=== PATIENT | female | born 1975 | race Caucasian/White ===

== ENCOUNTER 2016-11-10 05:03 | Day surgery (SDC) | payer BC ==
[2016-11-07 20:56] LABS: BASOPHILS 0.5 %; BASOPHILS ABSOLUTE 0.02 10/3/uL (0.0-0.16); EOSINOPHILS 0.5 %; EOSINOPHILS ABSOLUTE 0.02 10/3/uL (0.0-0.53); HEMATOCRIT 32.5 % (36.0-48.0); LYMPHOCYTES 34.3 %; LYMPHOCYTES ABSOLUTE 1.47 10/3/uL (0.67-4.30); MEAN CORPUS HGB CONC 30.8 g/dL (32.0-36.0); MEAN CORPUSCULAR HEMOGLOB 23.1 pg (26.0-34.0); MEAN CORPUSCULAR VOLUME 75.2 fL (80-100); MEAN PLATELET VOLUME 8.9 fL (9.2-13.0); MONOCYTES 7.5 %; MONOCYTES ABSOLUTE 0.32 10/3/uL (0.21-1.20); NEUTROPHILS 57.2 %; NEUTROPHILS ABSOLUTE 2.46 10/3/uL (2.02-8.40); PLATELET COUNT 240 10/3/uL (150-400); RBC DISTRIBUTION WIDTH 19.3 % (12.0-16.0); RED CELL COUNT 4.32 10/6/uL (4.0-5.6); WHITE BLOOD CELLS 4.3 10/3/uL (4.5-10.5)
[2016-11-07 20:58] LABS: MANUAL DIFF NO %
[2016-11-07 21:15] LABS: BUN (BLOOD UREA NITROGEN) 10 MG/DL (6-23); CALCIUM, SERUM 8.5 MG/DL (8.5-10.4); CHLORIDE, SERUM 108 MMOL/L (96-112); CO2 (CARBON DIOXIDE) 26 MMOL/L (24-34); CREATININE 0.85 MG/DL (0.55-1.02); GFR AFRICAN AMERICAN 100 ML/MIN (>=60); GFR NON AFRICAN AMERICAN 86 ML/MIN (>=60); GLUCOSE, SERUM 87 MG/DL (60-99); POTASSIUM, SERUM 3.4 MMOL/L (3.5-5.3); SODIUM, SERUM 141 MMOL/L (135-148)
--- NOTE | ~2016-11-10 | OP ---
Record Of Operation [facility] [address] [place]. [address] NAME: SHARRI DIOP : 77 STATUS : [facility] PAT#: [id number] AGE: 41 ADM/REG DATE : 11/10/16 MR#: [id number] REPORT SERV DATE: 11/10/16 DICTATED BY: AURELIO LION DATE: 11/10/16 REPORT STATUS : Draft TRANSCRIBED BY: MODL DATE: 11/10/16 DATE OF PROCEDURE: 11/10/2016 PREOPERATIVE DIAGNOSES: 1. Abnormal Pap smear revealing high-grade squamous intraepithelial lesion. 2. Endometrial biopsy with necrotic tissue. POSTOPERATIVE DIAGNOSES: 1. Abnormal Pap smear revealing high-grade squamous intraepithelial lesion. 2. Endometrial biopsy with necrotic tissue. PROCEDURE: Cold knife conization of the cervix with endocervical curettage, CPT code 38267. ESTIMATED BLOOD LOSS: 10 mL. FLUIDS IN: 400 mL of crystalloid. COMPLICATIONS: None. ANESTHESIA: General endotracheal. INDICATIONS AND FINDINGS: This is a 41-year-old female who presented initially with abnormal bleeding and endometrial biopsy was performed revealing necrotic tissue with some benign endometrium. A Pap smear was also performed revealing HGSIL. She is now being taken to the operating room for cold knife conization of the cervix with endocervical curettage. Her examination under anesthesia revealed no gross evidence of malignancy. The cervix was grossly normal. A cold knife conization was performed and once the cone was removed specimens from the endocervix were also obtained. PROCEDURE IN DETAIL: The patient was taken to the operating room, where she was placed in supine position for administration of general anesthesia. She was then placed in a dorsal lithotomy position and prepped and draped in usual sterile fashion. The cervix was easily visualized. Sutures were placed at the 3 and 9 o'clock position. The cervix was injected with vasopressin. Using a scalpel, a colonization was performed. The cervix was also dilated and endocervical curettings were obtained. The cone bed was then cauterized. Surgicel soaked in Monsel's solution was then placed onto the cone bed and the sutures at 3 and 9 were tied in the midline. At the completion of the procedure, the anesthesia was reversed. The patient was taken to the recovery room in stable condition. ALIA/OSCAR Aurelio Lion M.D. Record Of Operation [facility] [address] [place]. [address] NAME: SHARRI DIOP : 77 STATUS : [facility] PAT#: [id number] AGE: 41 ADM/REG DATE : 11/10/16 MR#: [id number] REPORT SERV DATE: 11/10/16 DICTATED BY: AURELIO LION DATE: 11/10/16 REPORT STATUS : Draft TRANSCRIBED BY: MODL DATE: 11/10/16 / [id number] CC: Marissa Rodríguez D.O.
[~2016-11-10 05:03] MED LIST: *DENIES
== END 2016-11-10 16:49 | disposition home or self-care (01) ==
LOC: SDC 05:03
PROVIDERS: Obstetrics & Gynecology Gynecologic Oncology
PROC: 0UBC7ZZ Excision of Cervix, Via Natural or Artificial Opening (ICD-10-PCS; principal; 2016-11-10 08:45)
DX: C53.9 Malignant neoplasm of cervix uteri, unspecified (principal); N87.9 Dysplasia of cervix uteri, unspecified; F17.210 Nicotine dependence, cigarettes, uncomplicated; Z88.0 Allergy status to penicillin; Z88.5 Allergy status to narcotic agent; Z88.6 Allergy status to analgesic agent; Z98.51 Tubal ligation status
CPT/HCPCS: 36415; 71020-PO; 80048; 84703; 85025; 86850; 86900; 86901; 88305; 88307; 93005; A9270-GY; J0360; J0694; J1170; J2250; J2270; J2405; J3010